=== PATIENT | male | born 1985 | race Hispanic/Latino ===

== ENCOUNTER 2019-07-27 22:02 | Emergency (ER) | payer OTHER, SELFPAY ==
[2019-07-27 22:08] VITALS: BP 141/67; PULSE 84; RESP 23; TEMP 36.8; O2SAT 99; BMI 35.7
--- NOTE | 2019-07-27 22:21 | DI.RAD.S_ITS ---
PROCEDURE: XR CHEST 1V INDICATIONS: chest pain TECHNIQUE: One view of the chest was acquired. COMPARISON: None. FINDINGS: Surgical changes and devices: None. Lungs and pleura: Lungs are clear. No pleural effusions or pneumothorax. Mediastinum: Mediastinal contours appear normal. Heart size is normal. Bones and chest wall: No suspicious bony lesions. Overlying soft tissues appear unremarkable. IMPRESSION: 1. No acute cardiopulmonary disease. Dictated by: Xiang Rich M.D. on 07/28/2019 at 8:06 Approved by: Xiang Rich M.D. on 07/28/2019 at 8:10
[2019-07-27 22:28] LABS: Prothrombin Time 11.7 SECONDS (10.1-12.7)
[2019-07-27 22:29] LABS: Add Manual Diff / Slide Review NO; Basophils Absolute Auto 100 /uL (0-100); Basophils Percent Auto 0.6 % (0-2); Eosinophils Absolute Auto 300 /uL (0-450); Eosinophils Percent Auto 3.4 % (2-4); Hematocrit 44.9 % (41-53); Lymphocytes Absolute Auto 4200 /uL (1100-4500); Lymphocytes Percent Auto 45.2 % (25-40); Mean Corpuscular HGB Conc 33.3 % (30-36); Mean Corpuscular Hemoglobin 27.9 PG (26-34); Mean Corpuscular Volume 83.6 fL (80-100); Monocytes Absolute Auto 1100 /uL (0-900); Monocytes Percent Auto 11.4 % (3-14); Neutrophils Absolute Auto 3700 /uL (1500-7000); Neutrophils Percent Auto 39.4 % (50-75); Platelet Count 296 X10^3/uL (150-400); Red Blood Cell Count 5.36 X10^6/uL (4.5-5.9); Red Cell Distribution Width 14.6 % (11.6-14.8); White Blood Cell Count 9.3 X10^3/uL (4.5-11.0)
[2019-07-27 22:31] LABS: PTT Partial Thromboplastin Tim 33 SECONDS (26.4-36.2)
[2019-07-27 22:32] LABS: Alanine Aminotransferase 66 IU/L (<50); Albumin 4.6 g/dL (3.5-5.0); Albumin Globulin Ratio 1.2 (1.0-2.8); Alkaline Phosphatase 69 U/L (38-126); Aspartate Aminotransferase 45 IU/L (17-59); BUN Creatinine Ratio 18.2 (6-22); Bilirubin Total 0.4 mg/dL (0.2-1.3); Blood Urea Nitrogen 20 mg/dL (9-20); Calcium 9.6 mg/dL (8.4-10.2); Carbon Dioxide 34 mmol/L (22-32); Chloride 99 mmol/L (98-107); Creatine Kinase 174 U/L (55-170); Estimated Glomerular Filt Rate > 60.0 mL/min (>60); Globulin 3.9 g/dL (1.7-4.1); Glucose 78 mg/dL (70-100); HEMOLYSIS < 15 (0-50); Lipase 417 U/L (23-300); Potassium 3.8 mmol/L (3.4-5.1); Sodium 141 mmol/L (137-145); Total Protein 8.5 g/dL (6.3-8.2)
--- NOTE | 2019-07-27 22:33 | PC.NURSE ---
States his pain feels like acid reflux and began after a hard swallow four days ago.
[2019-07-27 22:44] LABS: Troponin I < 0.012 ng/mL (0.01-0.034)
[2019-07-27 22:47] LABS: CKMB % Relative Index 0.4 % (1.5-5.0); Creatine Kinase MB 0.72 ng/mL (<2.37)
--- NOTE | 2019-07-27 22:59 | ED_ITS ---
HPI - Chest Pain General Chief Complaint: Chest Pain Stated Complaint: chest Pains Time Seen by Provider: 07/27/19 22:50 Source: patient Mode of arrival: Ambulatory Limitations: no limitations History of Present Illness HPI narrative: 34-year-old male here for evaluation of epigastric pain. Also left-sided chest pain. He states that he initially had symptoms a couple years ago after night of drinking. He states he felt like it was heartburn. The symptoms seem to have gone away until just recently. Is also complaining of right upper quadrant pain. No fevers. No recent travel. No change in stool. No urinary symptoms. No problems breathing. Related Data Allergies Allergy/AdvReac Type Severity Reaction Status Date / Time No Known Drug Allergies Allergy Verified 07/27/19 22:12 Review of Systems Constitutional Constitutional: Denies fever(s) Cardiovascular Cardiovascular: Reports chest pain, Denies syncope, Denies rapid heart rate, Denies palpitations and Denies dyspnea Respiratory Respiratory: Denies cough and Denies dyspnea Gastrointestinal Gastrointestinal: Reports abdominal pain, Denies change in stool character, Denies nausea and Denies vomiting Musculoskeletal Musculoskeletal: Denies arthralgias Integumentary/Breasts Skin/Breast: Denies lesions and Denies rash Neurologic Neurologic: Denies behavioral changes and Denies syncope Psychiatric Psychiatric: Denies behavioral changes Endocrine Endocrine: Denies palpitations Hematologic/Lymphatic Hematologic/Lymphatic: Denies easy bleeding and Denies easy bruising Patient History Medical History Gastroesophageal reflux disease (Inactive) Social History Smoking Status: Unknown if ever smoked Smoking Status: Unknown if ever smoked alcohol intake frequency: holidays/special occasions only Substance Use Type: does not use Exam Initial Vital Signs Initial Vital Signs: Vital Signs Temperature 98.2 F 07/27/19 22:08 Pulse Rate 84 07/27/19 22:08 Respiratory Rate 23 07/27/19 22:08 Blood Pressure 141/67 H 07/27/19 22:08 Pulse Oximetry 99 07/27/19 22:08 Const General: cooperative and comfortable Limitations: mental status not altered HENMT Head: normal to inspection and normocephalic Chest Chest: No crepitus and No tenderness Resp Effort & Inspection: normal respiratory effort Auscultation: clear to auscultation bilaterally Cardio Rate: regular rate Rhythm: regular rhythm GI Inspection: non-distended Palpation: soft, No firm and No tender Back/Spine/Pelvis Back: No CVA tenderness Skin Lesions: no lesions Rashes: no rashes Neuro General: alert and awake Cognition: normal cognition Speech: speech normal Extrem General: normal to inspection, capillary refill normal and No edema Psych Appearance: grossly normal and well kempt Scores GCS Nas coma scale eye opening: Spontaneous [place] coma scale verbal response: Orientated Homeland coma scale motor response: Obey commands Homeland coma scale total score: 15 HEART Score Heart Score history: Slightly Suspicious Heart Score EKG: Normal Heart Score Age: < 45 years old Heart Score risk factors: No known risk factors Heart Score troponin: < or = to normal limit Heart Score Total: 0 Course Orders Ordered: ED Orders 07/27/19 22:15 Complete Blood Count AUTO DIFF Stat Comprehensive Metabolic Panel Stat Lipase Stat Partial Thromboplastin Time Stat Prothrombin Time INR Stat Troponin & CK Cardiac Panel Stat 07/27/19 22:21 XR chest 1V Stat Vital Signs Vital signs: Vital Signs - 8 hr 07/27/19 23:32 Pulse Rate 77 Respiratory Rate 16 Blood Pressure 139/76 Pulse Oximetry 99 MDM - Chest Pain Lab Data Attestation: I reviewed the patient's lab results. Result diagrams: 07/27/19 22:15 07/27/19 22:15 Labs: Lab Results 07/27/19 07/27/19 07/27/19 Range/Units 22:15 22:15 22:15 WBC 9.3 (4.5-11.0) X10^3/uL RBC 5.36 (4.5-5.9) X10^6/uL Hgb 15.0 (13.5-17.5) g/dL Hct 44.9 (41-53) % MCV 83.6 (80-100) fL MCH 27.9 (26-34) PG MCHC 33.3 (30-36) % RDW 14.6 (11.6-14.8) % Plt Count 296 (150-400) X10^3/uL Neut % (Auto) 39.4 L (50-75) % Lymph % (Auto) 45.2 H (25-40) % Dawes % (Auto) 11.4 (3-14) % Eos % (Auto) 3.4 (2-4) % Baso % (Auto) 0.6 (0-2) % Neut # (Auto) 3700 (3299-1583) /uL Lymph # (Auto) 4200 (1425-1463) /uL Dawes # (Auto) 1100 H (0-900) /uL Eos # (Auto) 300 (0-450) /uL Baso # (Auto) 100 (0-100) /uL PT 11.7 (10.1-12.7) SECONDS INR 1.0 (0.9-1.3) APTT 33 (26.4-36.2) SECONDS Sodium 141 (137-145) mmol/L Potassium 3.8 (3.4-5.1) mmol/L Chloride 99 (98-107) mmol/L Carbon Dioxide 34 H (22-32) mmol/L BUN 20 (9-20) mg/dL Creatinine 1.10 (0.66-1.25) mg/dL Estimated GFR > 60.0 (>60) mL/min BUN/Creatinine Ratio 18.2 (6-22) Glucose 78 (70-100) mg/dL Calcium 9.6 (8.4-10.2) mg/dL Total Bilirubin 0.4 (0.2-1.3) mg/dL AST 45 (17-59) IU/L ALT 66 H (<50) IU/L Alkaline Phosphatase 69 (38-126) U/L Total Creatine Kinase 174 H (55-170) U/L CK-MB (CK-2) 0.72 (<2.37) ng/mL CK-MB (CK-2) Rel Index 0.4 L (1.5-5.0) % Troponin I < 0.012 (0.01-0.034) ng/mL Total Protein 8.5 H (6.3-8.2) g/dL Albumin 4.6 (3.5-5.0) g/dL Globulin 3.9 (1.7-4.1) g/dL Albumin/Globulin Ratio 1.2 (1.0-2.8) Lipase 417 H (23-300) U/L Imaging Data Chest x-ray: Attestation: I personally reviewed and interpreted this imaging study as follows: My Impression: No pneumothorax, no focal consolidations, normal chest ECG Data Attestation: I personally reviewed and interpreted this ECG as follows: Prior ECG tracings: not available for review Interpretation: Sinus rhythm Ventricular rate of 83 Normal axis Normal QRS Normal QTC No ST T wave changes MDM Narrative Medical decision making narrative: Patient is a low risk heart score. Unrema rkable EKG. Chest x-ray is unremarkable. I do suspect that his symptoms are reflux related. LFTs are unremarkable. Feel we can hold on further radiologic studies for now. Will start patient on reflux disease treatment. He was given return precautions and follow-up instructions. He expressed understanding and agreement plan. Discharge Plan Departure Patient Disposition: Home Clinical Impression: Atypical chest pain Gastroesophageal reflux disease Qualifiers: Esophagitis presence: esophagitis presence not specified Qualified Code(s): K21.9 - Gastro-esophageal reflux disease without esophagitis Discharge Date/Time: 07/27/19 23:33 Instructions: DI for Gastroesophageal Reflux Disease (GERD) Activity Restrictions/Additional Instructions: Recommend that you keep your follow-up appointment with your medical operations supervisor later this week. I recommend that you start taking Pepcid. You can buy this [id number]. Return to the emergency department for any new or worsening symptoms
[2019-07-27 23:32] VITALS: BP 139/76; PULSE 77; RESP 16; O2SAT 99
== END 2019-07-27 23:33 | disposition home or self-care (01) ==
PROVIDERS: Emergency Provider Emergency Medicine
DX: R07.89 Other chest pain (principal); K21.9 Gastro-esophageal reflux disease without esophagitis; R03.0 Elevated blood-pressure reading, without diagnosis of hypertension
CPT/HCPCS: 36415; 71045; 80053; 82550; 82553; 83690; 84484; 85025; 85610; 85730; 93005; 99284; 99285